=== PATIENT | male | born 1990 | race African-American/Black ===

== ENCOUNTER 2017-06-28 14:41 | Inpatient (IN) | payer MEDICARE, MEDICAID ==
[~2017-06-28] VITALS: Ht 160 cm; Wt 44.8 kg
[2017-06-28] MEDS ORDERED: SODIUM CHLORIDE 0.9% 1,000 ML IV ONE (17:37)
[2017-06-28] MEDS ORDERED: LIDOCAINE VISCOUS 2% 15ML UD ONE (18:32)
[2017-06-28] MEDS ORDERED: diphenhdrAMINE HCL 50 MG/1 ML VL ONE (18:33)
[2017-06-28] MEDS ORDERED: SODIUM CHLORIDE LOCK 10 ML ONE (18:35)
[2017-06-28] MEDS: MIDAZOLAM HCL 5 MG/ML-1ML VIAL ONE ×2 (18:44→18:49)
[2017-06-28] MEDS: fentaNYL CITRATE 100 MCG/2 ML VL ONE ×2 (18:44→18:49)
[2017-06-28 18:46] LABS: Basophils # (auto) 0 uL; Basophils % (auto) 0.3 % (0.0-2.0); Eosinophils # (auto) 0 uL; Eosinophils % (auto) 0.5 % (0.0-7.0); Hematocrit 44.5 % (41.0-53.0); Hemoglobin 14.8 g/dL (13.5-17.5); Lymphocytes # (auto) 0.6 uL; Mean Corpuscular Hgb Conc. 33.2 g/dL (32.0-36.0); Mean Corpuscular Volume 96.4 fL (80.0-100.0); Monocytes # (auto) 0.6 uL; Monocytes % (auto) 8.3 % (0.0-12.0); Neutrophils # (auto) 5.8 uL; Neutrophils % (auto) 81.9 % (37.0-80.0); Nucleated Red Blood Cells % 0.1 %; Platelet Count (auto) 203 10^3/uL (140-450); Red Blood Cells 4.61 10^6/uL (4.5-5.90); Red Cell Distribution Width 13.1 % (11.8-14.3)
[2017-06-28 18:49] LABS: INR 1.3 (0.9-1.15); Partial Thromboplastin Time 26.1 sec (22.64-33.71); Prothrombin Time 14.2 sec (9.37-12.3)
[2017-06-28 18:54] LABS: BUN/Creatinine Ratio 14.7; Potassium 3.1 mmol/L (3.5-5.1)
[2017-06-28] MEDS: PANTOPRAZOLE 40 MG/10 ML VIAL IV SCH (19:53)
[2017-06-28] MEDS ORDERED: ONDANSETRON HCL 4 MG/2 ML VIAL IV PRN (22:00)
[2017-06-28] MEDS ORDERED: HYDROcodone-ACET 5/325MG TAB PO PRN (22:00)
[2017-06-28] MEDS ORDERED: MORPHINE SULFATE 4 MG/ML SYR/VIAL IV PRN (22:00)
[2017-06-28] MEDS ORDERED: ACETAMINOPHEN 500 MG TAB PO PRN (22:00)
[2017-06-29 00:38] VITALS: BP 124/77
[2017-06-29 05:00] VITALS: BP 103/62
[2017-06-29 07:14] LABS: Basophils # (auto) 0 uL; Basophils % (auto) 0.2 % (0.0-2.0); Eosinophils # (auto) 0.1 uL; Eosinophils % (auto) 0.6 % (0.0-7.0); Hematocrit 38.3 % (41.0-53.0); Hemoglobin 12.7 g/dL (13.5-17.5); Lymphocytes # (auto) 1.1 uL; Lymphocytes % (auto) 7.1 % (10.0-50.0); Mean Corpuscular Hemoglobin 31.7 pg (28.0-32.0); Mean Corpuscular Volume 95.9 fL (80.0-100.0); Monocytes % (auto) 6.3 % (0.0-12.0); Neutrophils # (auto) 13.6 uL; Neutrophils % (auto) 85.8 % (37.0-80.0); Nucleated Red Blood Cells % 0.1 %; Platelet Count (auto) 151 10^3/uL (140-450); Red Cell Distribution Width 12.9 % (11.8-14.3); White Blood Cell 15.8 10^3/uL (4.4-10.8)
[2017-06-29 09:00] VITALS: BP 109/58
[2017-06-29 09:34] LABS: BUN/Creatinine Ratio 15.5; Calcium 6.7 mg/dL (8.5-10.1)
[2017-06-29] MEDS: PANTOPRAZOLE 40 MG/10 ML VIAL IV SCH ×2 (10:05→20:18)
[2017-06-29 11:02] LABS: Potassium 2.8 mmol/L (3.5-5.1)
[2017-06-29] MEDS ORDERED: POTASSIUM CHL 20 Meq TABLET PO ONE ×2 (11:45)
[2017-06-29 11:49] LABS: Albumin 3.7 g/dL (3.4-5.0); Bilirubin, Direct 0.3 mg/dL (0-0.2); Bilirubin, Total 3.9 mg/dL (0.2-1.0); Total Protein 6.6 g/dL (6.4-8.2)
[2017-06-29 13:09] VITALS: BP 104/55
[2017-06-29] MEDS ORDERED: MONT5CHW17 PO (15:14)
[2017-06-29] MEDS ORDERED: PRE5T PO (15:14)
[2017-06-29] MEDS ORDERED: OME20T PO (15:14)
[2017-06-29] MEDS ORDERED: MULTLIQ36 OR (15:14)
[2017-06-29] MEDS ORDERED: CYAN100022 IM (15:14)
[2017-06-29] MEDS ORDERED: METR500T PO (15:14)
[2017-06-29] MEDS ORDERED: PHYT5TAB PO (15:14)
[2017-06-29 17:02] VITALS: BP 124/71
[2017-06-29 21:33] VITALS: BP 105/76
[2017-06-30 05:00] VITALS: BP 121/63
[2017-06-30 05:48] LABS: Basophils # (auto) 0 uL; Basophils % (auto) 0.4 % (0.0-2.0); Eosinophils # (auto) 0.1 uL; Eosinophils % (auto) 1.8 % (0.0-7.0); Hematocrit 38.3 % (41.0-53.0); Hemoglobin 12.9 g/dL (13.5-17.5); Lymphocytes # (auto) 0.6 uL; Lymphocytes % (auto) 7.5 % (10.0-50.0); Mean Corpuscular Hemoglobin 32.2 pg (28.0-32.0); Mean Corpuscular Hgb Conc. 33.6 g/dL (32.0-36.0); Mean Corpuscular Volume 95.9 fL (80.0-100.0); Monocytes # (auto) 0.6 uL; Monocytes % (auto) 7.1 % (0.0-12.0); Neutrophils # (auto) 6.9 uL; Neutrophils % (auto) 83.2 % (37.0-80.0); Platelet Count (auto) 139 10^3/uL (140-450); Red Blood Cells 3.99 10^6/uL (4.5-5.90); White Blood Cell 8.3 10^3/uL (4.4-10.8)
[2017-06-30 06:08] LABS: Calcium 7.7 mg/dL (8.5-10.1); Potassium 3.6 mmol/L (3.5-5.1)
[2017-06-30 06:10] LABS: BUN/Creatinine Ratio 11.6
[2017-06-30 06:12] LABS: Bilirubin, Total 3.5 mg/dL (0.2-1.0)
[2017-06-30 07:56] VITALS: BP 112/63
[2017-06-30] MEDS ORDERED: PANT40TA2 PO (09:14)
[2017-06-30] MEDS: PANTOPRAZOLE 40 MG/10 ML VIAL IV SCH (09:37)
[2017-06-30 12:18] VITALS: BP 115/72
== END 2017-06-30 16:16 | disposition home or self-care (01) | DRG 393 ==
LOC: ER 14:41 → OVERFLOW 14:42 → WEST WING 23:03
PROVIDERS: ADMIT Nurse Practitioner Family; ATTEND Internal Medicine
PROC: 0W3P8ZZ Control Bleeding in Gastrointestinal Tract, Via Natural or Artificial Opening Endoscopic (ICD-10-PCS; 2017-06-28)
PROC: 0DC48ZZ Extirpation of Matter from Esophagogastric Junction, Via Natural or Artificial Opening Endoscopic (ICD-10-PCS; principal; 2017-06-28 17:45)
DX: T18.128A Food in esophagus causing other injury, initial encounter (principal); N17.0 Acute kidney failure with tubular necrosis; E87.0 Hyperosmolality and hypernatremia; K91.2 Postsurgical malabsorption, not elsewhere classified; E87.6 Hypokalemia; K20.9 Esophagitis, unspecified; K22.8 Other specified diseases of esophagus; K80.20 Calculus of gallbladder without cholecystitis without obstruction; Z82.49 Family history of ischemic heart disease and other diseases of the circulatory system
CPT/HCPCS: 36415; 43247; 70360; 71046; 76705; 80048; 80076; 82247; 85025; 85610; 85730; 87040; 94761; 96361; 96374; 96375; C9113; J2250

== ENCOUNTER 2017-07-25 10:07 | Emergency (ER) | payer MEDICARE, MEDICAID ==
[~2017-07-25] VITALS: Ht 152.4 cm; Wt 57.8 kg
[~2017-07-25 10:07] MED LIST: CYAN100022 IM; MONT5CHW17 PO; MULTLIQ36 OR; PANT40TA2 PO; PHYT5TAB PO
[2017-07-25 10:19] VITALS: BP 139/88
[2017-07-25] MEDS ORDERED: cefTRIAXone SOD 1,000 MG VL IM ONE (12:30)
[2017-07-25] MEDS ORDERED: LIDOCAINE 1% (LOCAL ANESTH.) PF 5ml SDV ONE (12:33)
== END 2017-07-25 12:45 | disposition home or self-care (01) ==
LOC: ER 10:07
DX: L02.411 Cutaneous abscess of right axilla (principal); I10 Essential (primary) hypertension; K21.9 Gastro-esophageal reflux disease without esophagitis
CPT/HCPCS: 10060; 96372; 99283; J0696

== ENCOUNTER 2019-04-02 13:42 | Emergency (ER) | payer OTHER, MEDICAID ==
[~2019-04-02] VITALS: Ht 160 cm; Wt 54.4 kg
[2019-04-02 16:43] VITALS: BP 97/49
== END 2019-04-02 16:48 | disposition home or self-care (01) ==
LOC: ER 13:47
DX: J06.9 Acute upper respiratory infection, unspecified (principal); K21.9 Gastro-esophageal reflux disease without esophagitis; I10 Essential (primary) hypertension